=== PATIENT | male | born 1980 | race African-American/Black ===

== ENCOUNTER 2019-10-08 19:34 | Emergency (ER) | payer MEDICAID, OTHER ==
[~2019-10-08] VITALS: Ht 188 cm; Wt 93.0 kg
[2019-10-09 00:30] VITALS: BP 144/68
[2019-10-09] MEDS ORDERED: TETANUS-DIPTH-ACEL PERTUSSIS 0.5ML SYRG IM ONE (01:00)
[2019-10-09] MEDS ORDERED: BACITRACIN TOP OINT 1 UD PKG TOP ONE (01:00)
== END 2019-10-09 02:23 | disposition home or self-care (01) ==
LOC: ER 19:37
DX: S01.411A Laceration without foreign body of right cheek and temporomandibular area, initial encounter (principal); Y04.1XXA Assault by human bite, initial encounter; Y93.89 Activity, other specified; Y92.89 Other specified places as the place of occurrence of the external cause; Y99.8 Other external cause status
CPT/HCPCS: 12011; 90471; 90715